=== PATIENT | female | born 1990 | race Caucasian/White ===

== ENCOUNTER → 2016-10-03 | Outpatient (CLI) | payer OTHER | LOC: HPND 15:01 | PROVIDERS: ATTEND Family Medicine | DX: Z36 Encounter for antenatal screening of mother (principal) | CPT/HCPCS: 76805 ==

== ENCOUNTER → 2016-11-21 | Outpatient (CLI) | payer OTHER ==
[~2016-11-21] MED LIST: INFL1INJ49 IM; TETA1INJ6 IM
== END ==
LOC: HPND 13:00
PROVIDERS: ATTEND Family Medicine
DX: Z36 Encounter for antenatal screening of mother (principal)
CPT/HCPCS: 76816

== ENCOUNTER 2017-03-24 10:38 | Emergency (ER) | payer OTHER ==
[~2017-03-24] VITALS: Ht 162.6 cm; Wt 75.7 kg
[~2017-03-24 10:38] MED LIST changes: +BREAST PUMP1 MI1; -INFL1INJ49 IM; -TETA1INJ6 IM
--- NOTE | 2017-03-24 10:48 | PD ---
HPI Date Seen: Mar 24, 2017 Travel History International Travel<30 Days: No Contact w/Intl Traveler<30Days: No Known Affected Area: No History of Present Illness HPI The patient is a very pleasant 26 year old at 40 weeks gestation being seen in the OB ED due to contractions. Patient states she first started having contractions late last night around 23:00 and thought they have been been intensifying beginning peter. 04:00 this AM. Pt states she has been feeling contractions about every 5-10 minutes. Denies LOF. +FM. She otherwise has no complaints. The patient was seen in clinic yesterday by her PCP Dr. Barrios and cervix noted to be thick and closed. Para: 0 : 1 History Past Medical History Medical History: Denies Significant Hx Past Surgical History Surgical History: No Previous Surgery Family History Narrative Family History Thalassemia Anemia Social History Alcohol Use: No Tobacco Use: No Substance Abuse: No Allergies-Medications (Allergen,Severity, Reaction): Coded Allergies: No Known Allergies (Unverified Adverse Reaction, Unknown, 03/24/17) Home Meds Active Scripts Breast Pump (Breast Pump) 1 Mis Mis, EA .ROUTE DIRECTED, #1 Request for pump to help with . Prov:Carmelo Barrios MD R3 03/02/17 Review of Systems Except as stated in HPI: all other systems reviewed are Neg Physical Exam Narrative GENERAL: Well-nourished, well-developed patient. SKIN: Warm and dry. HEAD: Normocephalic and atraumatic. EYES: No scleral icterus. No injection or drainage. ENT: No nasal drainage noted. Mucous membranes pink. Airway patent. NECK: Supple, trachea midline. No JVD. CARDIOVASCULAR: Regular rate and rhythm without murmurs, gallops, or rubs. RESPIRATORY: Breath sounds equal bilaterally. No accessory muscle use. ABDOMEN/GI: Abdomen soft, non-tender, bowel sounds present, no rebound, no guarding Gravid to 40 weeks size GENITOURINARY: External Genitalia: intact and normal in appearance Cervix: midposition Dilatation: 1-2 cm Effacement: 70% Station: -2 Presentation: vertex Membranes: [intact or ruptured] Uterine Contractions: irregular on tocometer FHT's: Category: I Baseline: 140s Reactive: +accels Variability: mod Decels: one variable decel noted EXTREMITIES: No cyanosis or edema. BACK: Nontender without obvious deformity. NEUROLOGICAL: Awake and alert. Motor and sensory grossly within normal limits. Normal speech. Data Data Vital Signs Reviewed: Yes Group B Strep: Negative MDM Medical Record Reviewed: Yes Plan Very pleasant 26 year old at 40 weeks gestation seen in OB ED for contractions. 1. IUP - Cervix: 1-2cm/70%/-2, vertex presentation - Patient monitored in OB triage, advised to ambulate as tolerated for an hour as her cervix was noted to be thick and closed in clinic yesterday - Repeat cervical exam is unchanged - Category I tracing - Irregular contractions on tocometer - Labor precautions reviewed with patient - Patient will follow up with PCP Dr. Barrios for next scheduled office visit if not in spontaneous active labor prior to then luciano Haji Diagnosis Diagnosis: Primary Impression: Intrauterine Additional Impression: 40 weeks gestation of Disposition: 01 DISCHARGE HOME Condition: Stable Patient Instructions: Early Labor Signs (ED), General Instructions Jose G Platt MD R2 Mar 24, 2017 10:48
[2017-03-25] MEDS ORDERED: PRENTAB7 (08:14)
== END 2017-03-24 13:04 | disposition home or self-care (01) ==
LOC: HOBED 10:38
DX: O47.03 False labor before 37 completed weeks of gestation, third trimester (principal); Z3A.40 40 weeks gestation of pregnancy
CPT/HCPCS: 59025

== ENCOUNTER 2017-03-25 07:44 | Inpatient (IN) | payer OTHER ==
[~2017-03-25] VITALS: Ht 162.6 cm; Wt 76.0 kg
[2017-03-25] VITALS (42 sets, daily range): BP systolic 88–134; BP diastolic 60–104; PULSE 68–132; RESP 16–20; TEMP 97.5–99.1; O2SAT 0
[2017-03-25] MEDS ORDERED: PRENTAB7 (08:14)
[2017-03-25] MEDS ORDERED: LIDOCAINE HCL 1% 50 ML VIAL INFIL PRN (08:30)
[2017-03-25] MEDS ORDERED: LIDOCAINE HCL 1% 50 ML VIAL I-DERMAL PRN (08:30)
[2017-03-25] MEDS ORDERED: OXYTOCIN 30 UNITS-500ML PREMIX 500 ML IV ONE (08:30)
[2017-03-25] MEDS ORDERED: MINERAL OIL 10 ML VIAL TOPICAL PRN (08:30)
[2017-03-25] MEDS ORDERED: CITRIC ACID-SODIUM CITRATE LIQ 30 ML UDC PO SCH (08:30)
[2017-03-25] MEDS ORDERED: SODIUM CHLORID 0.9% 500 ML INJ 500 ML IV PRN (08:30)
--- NOTE | 2017-03-25 08:44 | HHI.HP ---
History & Physical H&P HPI Chief Complaint Contractions Date Seen: Mar 25, 2017 Time Seen: 07:48 Travel History International Travel<30 Days: No Contact w/Intl Traveler<30Days: No History of Present Illness HPI The patient is a very pleasant 26 year old at 40 and 1/7 weeks gestation seen in the OB ED due to contractions becoming more intense. Patient states she has an peter on her phone that has been measuring the frequency of her contractions she states she had been having contractions about every 6-7 minutes for an hour or so but then had intervals of up to 30 minutes. She states she believes her contractions have been more intense since coming in yesterday. She also reports some dribbling after voiding and some fluid on paper when she has to wipe. Reports +FM. She was seen here yesterday in the OB ED and cervix noted to be 1-2cm/70%/-2. Para: 0 : 1 History Past Medical History Medical History: Denies Significant Hx Past Surgical History Surgical History: No Previous Surgery Family History Family History: Negative Social History Alcohol Use: No Tobacco Use: No Substance Abuse: No Allergies-Medications (Allergen,Severity, Reaction): Coded Allergies: No Known Allergies (Unverified Adverse Reaction, Unknown, 03/24/17) Home Meds Active Scripts Breast Pump (Breast Pump) 1 Mis Anila EA .ROUTE DIRECTED, #1 Request for pump to help with . Prov:Carmelo Barrios MD R3 03/02/17 Reported Medications Pnv No.95/Ferrous Fum/Folic AC ( Vitamins Tablet) 28 Mg Iron-800 Mcg Tablet 03/25/17 Review of Systems Except as stated in HPI: all other systems reviewed are Neg Physical Exam Narrative GENERAL: Well-nourished, well-developed patient. SKIN: Warm and dry. HEAD: Normocephalic and atraumatic. EYES: No scleral icterus. No injection or drainage. ENT: No nasal drainage noted. Mucous membranes pink. Airway patent. NECK: Supple, trachea midline. No JVD. CARDIOVASCULAR: Regular rate and rhythm without murmurs, gallops, or rubs. RESPIRATORY: Breath sounds equal bilaterally. No accessory muscle use. ABDOMEN/GI: Abdomen soft, non-tender, bowel sounds present, no rebound, no guarding Gravid to 40 weeks size GENITOURINARY: External Genitalia: intact and normal in appearance Cervix: posterior Dilatation: 4cm Effacement: 80% Station: -1 Presentation: vertex Membranes: bulging Uterine Contractions: irregular on tocometer FHT's: Category: I Baseline: 140s Reactive: yes Variability: mod Decels: one variable decel noted EXTREMITIES: No cyanosis or edema. BACK: Nontender without obvious deformity. No CVA tenderness. NEUROLOGICAL: Awake and alert. Motor and sensory grossly within normal limits. Normal speech. Data Vital Signs Reviewed: Yes Group B Strep: Negative Medical Record Reviewed: Yes Plan Very pleasant 26 year old at 40 and 1/7 weeks gestation seen in OB ED for labor check, being admitted to L&D in active labor. 1. IUP - Admit to L&D - Cervix: 4cm/80%/-1, vertex - Category I tracing - Irregular contractions on tocometer - GBS negative - May AROM for augmentation of labor - Desiring epidural - Start Pitocin per protocol - Expectant management Jose G Regalado MD R2 Mar 25, 2017 08:44
[2017-03-25] MEDS ORDERED: OXYTOCIN 30 UNITS-500ML PREMIX 500 ML IV SCH ×2 (08:45→16:30)
[2017-03-25] MEDS ORDERED: SODIUM CHLOR 0.9% 1000 ML INJ 1,000 ML IV PRN (09:00)
[2017-03-25] MEDS ORDERED: LACTATED RINGER'S 1000 ML INJ 1,000 ML IV PRN (09:00)
[2017-03-25 09:09] LABS: BASOPHIL % 0.2 % (0.0-2.0); EOSINOPHIL # 0.4 TH/MM3 (0-0.4); EOSINOPHIL % 2.4 % (0.0-4.0); HEMATOCRIT 38.9 % (35.0-46.0); HEMOGLOBIN 13.1 GM/DL (11.6-15.3); LYMPH % 11.9 % (9.0-44.0); LYMPHOCYTE # 1.8 TH/MM3 (1.0-4.8); MEAN CORPUSCULAR HGB CONC 33.7 % (32.0-36.0); MEAN PLATELET VOLUME 8.8 FL (7.0-11.0); MONO % 7.1 % (0.0-8.0); MONOCYTE # 1.1 TH/MM3 (0-0.9); NEUT % 78.4 % (16.0-70.0); PLATELET COUNT 243 TH/MM3 (150-450); RED BLOOD COUNT 4.09 MIL/MM3 (4.00-5.30); WHITE BLOOD COUNT 15.4 TH/MM3 (4.0-11.0)
[2017-03-25 09:11] LABS: BACTERIA, URINE RARE /hpf; BILIRUBIN, URINE NEG (NEG); BLOOD, URINE TRACE (NEG); GLUCOSE,URINE NEG (NEG); KETONE, URINE NEG (NEG); MUCUS URINE FEW /lpf (OCC); NITRITE,URINE NEG (NEG); PH, URINE 6.5 (5.0-8.5); SQUAMOUS EPITHELIAL CELL URINE 3 /hpf (0-5); URINE COLOR LIGHT-YELLOW (YELLW/STRAW); URINE LEUKOCYTE ESTERASE SMALL (NEG)
[2017-03-25] MEDS: LACTATED RINGER'S 1000 ML INJ 1,000 ML IV SCH ×2 (09:11→11:52)
[2017-03-25] MEDS ORDERED: fentaNYL 2MCG-BUPIV 0.125% INJ 100 ML ONE (10:33)
[2017-03-25] MEDS ORDERED: ePHEDrine/NS 25 MG/5 ML SYRINGE ONE (10:49)
--- NOTE | 2017-03-25 11:28 | PD.LABORPN ---
Subjective Subjective Resting in bed, just received epidural. Had some mild nausea earlier. No chest pain or shortness of breath. Feeling contractions. Calm and relaxed in the room. (Carmelo Barrios MD R3) Objective Vital Signs Vital Signs Date Time Temp Pulse Resp B/P (MAP) Pulse Ox O2 Delivery O2 Flow Rate FiO2 03/25/17 10:50 70 110/66 (81) 03/25/17 10:14 84 115/77 (90) 03/25/17 09:45 73 101/72 (82) 03/25/17 09:17 79 104/66 (79) 03/25/17 09:15 79 104/66 (79) 03/25/17 09:15 18 03/25/17 08:15 18 Objective Pelvic Exam: Dilatation: 5 cm Effacement: 80% Station: -1 Presentation: vertex Membranes: intact, amniotomy attempted but slow leak only Uterine Contractions: q2-3 mins currently, was irregular FHT's: Category: 1 Baseline: 140's Reactive: yes Variability: moderate Decels: none (Carmelo Barrios MD R3) Assessment/Plan Assessment and Plan 26 year old G1 at 5 cm dilation, 80% effaced, -[address] On oxytocin 04/20/29 protocol. Contractions every 2 to 3 minutes currently. Amniotomy attempted but slow leak only. - Continue maternal- monitoring continuously. - Anticipate vaginal delivery, expectant management. Discussed with Dr. Forbes (Carmelo Barrios MD R3) Assessment and Plan Patient seen and evaluated with resident under direct supervision, agree with assessment and plan. (Fred Forbes MD) Carmelo Barrios MD R3 Mar 25, 2017 11:28 Fred Forbes MD Mar 26, 2017 08:20
[2017-03-25] MEDS ORDERED: ePHEDrine/NS 25 MG/5 ML SYRINGE IV PUSH PRN (11:45)
[2017-03-25] MEDS ORDERED: fentaNYL 2MCG-BUPIV 0.125% 100 ML EPIDURAL SCH (11:45)
[2017-03-25] MEDS ORDERED: NO SYSTEM NARCOTICS PRN (11:45)
[2017-03-25] MEDS ORDERED: DO NOT ADMINISTER ANTICOAGULANTS PRN (11:45)
[2017-03-25] MEDS ORDERED: MEASLES, MUMPS, RUBELLA VACCINE 0.5 ML VIAL SQ ONE (16:00)
[2017-03-25] MEDS ORDERED: DIPHTH/TETANUS/ACEL PERTUSSIS (BOOSTER) 0.5 ML VIAL/PFS IM ONE (16:00)
[2017-03-25] MEDS ORDERED: WITCH HAZEL 50%/GLYCERIN 12.5% 40 PAD JAR TOPICAL PRN (16:30)
[2017-03-25] MEDS ORDERED: ZOLPIDEM TARTRATE 5 MG TAB PO PRN (16:30)
[2017-03-25] MEDS ORDERED: ONDANSETRON ODT 4 MG TAB PO PRN (16:30)
[2017-03-25] MEDS ORDERED: DOCUSATE SODIUM 50 MG/SENNA 8.6 MG TAB PO PRN (16:30)
[2017-03-25] MEDS ORDERED: ALUMINUM/MAGNESIUM/SIMETH 30 ML CUP PO PRN (16:30)
[2017-03-25] MEDS ORDERED: oxyCODONE/ACETAMINOPHEN 5 MG/325 MG TAB PO PRN ×2 (16:30)
[2017-03-25] MEDS ORDERED: SODIUM CHLORIDE 0.9% FLUSH 10 ML FLUSH IV FLUSH PRN (16:30)
[2017-03-25] MEDS ORDERED: ACETAMINOPHEN 325 MG TAB PO PRN (16:30)
[2017-03-25] MEDS ORDERED: BENZOCAINE 20% TOPICAL SPRAY 60 ML CAN TOPICAL PRN (16:30)
--- NOTE | 2017-03-25 16:49 | PD.OB.DELI ---
Weeks gestation: 40 Pt started active labor?: Yes Active labor start date: Mar 25, 2017 Active labor start time: 11:30 Medical induction of labor?: No Artificial rupture of membrane: Yes Artificial ROM date: Mar 25, 2017 Artifical ROM time: 11:30 Anesthesia: Epidural Episiotomy: None Vaginal Delivery: Normal, Spontaneous Presentation: Occiput posterior Nuchal Cord: None Delayed cord clamping (45 sec): Yes : Female Delivery date: Mar 25, 2017 Delivery time: 15:56 One Minute : 9 Five Minute : 9 Weight: 3105 Placenta: Spontaneous delivery Laceration: Perineal laceration, 3 deg Repair: Vicryl interrupted (rectal capsule repaired with 0 Vicryl interrupted sutures ), Vicryl running (3-0 Vicryl running sutures used to repair perineal laceration) Estimated blood loss: 350cc Additional Information Resident: Dr. Barrios Attending: Dr. Forbes Normal spontaneous vaginal delivery of live female , occiput posterior, over intact perineum with epidural anesthesia. No nuchal cord present. Spontaneous delivery of placenta with 3-vessel cord. 3rd degree laceration extended to the rectal capsule. Rectal capsule restored using an interrupted technique with 0 Vicryl, while remainder of perineal laceration repaired with running 3-0 Vicryl. Estimated blood loss 350 cc's. Oxytocin utilized for labor augmentation on a 2--30 protocol. (Carmelo Barrios MD R3) Attestation I was in attendance for this delivery. The repair of the rectal capsule was performed by me using interrupted 0 Vicryl sutures. There was no evidence of penetrating trauma to the rectal mucosa and no suture material in the rectum after the repair. (Fred Forbes MD) Carmelo Barrios MD R3 Mar 25, 2017 16:49 Fred Forbes MD Mar 26, 2017 09:11
[2017-03-25] MEDS ORDERED: SODIUM CHLORIDE 0.9% FLUSH 10 ML FLUSH IV FLUSH SCH (21:00)
[2017-03-25] MEDS: IBUPROFEN 800 MG TAB PO PRN (23:23)
--- NOTE | 2017-03-26 07:59 | HHI.OB ---
Subjective Remarks 26 year old PPD 1 after spontaneous vaginal delivery. No acute events overnight. She required only Ibuprofen for pain control overnight. She reports minimal pain this morning. Lochia is the amount of a menstrual period. She has no nausea or vomiting. No chest pain or shortness of breath. No calf tenderness or swelling. She is without difficulties. (Carmelo Barrios MD R3) Remarks Patient seen and evaluated with resident under direct supervision, agree with assessment and plan. (Fred Forbes MD) Objective Vitals/I&O Vital Signs Date Time Temp Pulse Resp B/P (MAP) Pulse Ox O2 Delivery O2 Flow Rate FiO2 03/25/17 20:05 99.1 90 18 122/72 (89) 03/25/17 18:18 98.9 93 20 110/65 (80) 0 03/25/17 17:30 107 116/72 (87) 03/25/17 17:15 108 111/68 (82) 03/25/17 17:00 107 119/69 (86) 03/25/17 16:45 116 110/65 (80) 03/25/17 16:30 108 123/71 (88) 03/25/17 16:15 119 120/70 (87) 03/25/17 16:01 132 113/104 (107) 03/25/17 16:00 18 03/25/17 15:59 129 121/69 (86) 03/25/17 15:01 88 134/90 (105) 03/25/17 14:58 98.1 18 03/25/17 14:31 92 88/71 (77) 03/25/17 14:01 90 108/69 (82) 03/25/17 13:45 98.0 18 03/25/17 13:30 87 103/78 (86) 03/25/17 13:00 88 104/60 (75) 03/25/17 12:30 106 92/73 (79) 03/25/17 12:14 16 03/25/17 12:00 69 120/71 (87) 03/25/17 11:53 18 03/25/17 11:50 125/76 (92) 03/25/17 11:50 68 03/25/17 11:45 75 116/64 (81) 03/25/17 11:45 97.5 72 18 03/25/17 11:42 124 117/77 (90) 03/25/17 11:35 79 03/25/17 11:35 75 120/71 (87) 03/25/17 11:30 78 121/74 (90) 03/25/17 11:30 77 03/25/17 11:27 75 117/69 (85) 03/25/17 11:25 74 03/25/17 11:24 76 117/74 (88) 03/25/17 11:21 73 115/67 (83) 03/25/17 11:20 76 03/25/17 11:19 93 128/75 (92) 03/25/17 11:15 88 03/25/17 11:15 87 128/76 (93) 03/25/17 11:14 86 114/72 (86) 03/25/17 11:10 88 03/25/17 11:05 89 03/25/17 10:50 70 110/66 (81) 03/25/17 10:14 84 115/77 (90) 03/25/17 09:45 73 101/72 (82) 03/25/17 09:17 79 104/66 (79) 03/25/17 09:15 79 104/66 (79) 03/25/17 09:15 18 03/25/17 08:15 18 Objective Remarks GENERAL: Well-nourished, well-developed patient. CARDIOVASCULAR: Regular rate and rhythm without murmurs, gallops, or rubs. RESPIRATORY: Breath sounds equal bilaterally. No accessory muscle use. ABDOMEN/GI: Abdomen soft, non-tender. Fundus: Firm, non-tender at umbilicus. GENITOURINARY: Moderate bleeding. EXTREMITIES: No cyanosis or edema, non-tender, without signs of DVT. Medications and IVs Current Medications Medications (Trade) Dose Ordered Sig/Angeles Route Start Time Stop Time Status Last Admin Miscellaneous Information No systemic narcotics to be given except... UNSCH PRN .XX 03/25/17 11:45 03/26/17 11:44 Miscellaneous Information DO NOT ADMINISTER ANY ANTICOAGUL... UNSCH PRN .XX 03/25/17 11:45 03/26/17 11:44 (NS Flush) 2 ml BID IV FLUSH 03/25/17 21:00 (NS Flush) 2 ml UNSCH PRN IV FLUSH 03/25/17 16:30 (Tylenol) 650 mg Q4H PRN PO 03/25/17 16:30 (Motrin) 800 mg Q8H PRN PO 03/25/17 16:30 03/25/17 23:23 (Percocet 5-325 Mg) 1 tab Q4H PRN PO 03/25/17 16:30 (Percocet 5-325 Mg) 2 tab Q4H PRN PO 03/25/17 16:30 (Americaine 20% Top Spr) 1 spray Q4H PRN TOPICAL 03/25/17 16:30 03/25/17 23:24 (Tucks Pads) 1 applic QID PRN TOPICAL 03/25/17 16:30 03/25/17 23:24 (Jovanna-Colace) 2 tab Q12H PRN PO 03/25/17 16:30 (Ambien) 5 mg HS PRN PO 03/25/17 16:30 (Mag-Al Plus Susp Liq) 15 ml Q8H PRN PO 03/25/17 16:30 (Zofran Odt) 4 mg Q6H PRN PO 03/25/17 16:30 (Miralax) 17 gm DAILY PO 03/26/17 09:00 (Carmelo Barrios MD R3) Assessment/Plan Assessment and Plan 26 year old PPD1 after spontaneous vaginal delivery, doing well post- . - Continue , sec reporting consultant will see her today for support and education. - Discussed control, she is undecided at this time. - 3rd degree laceration during delivery: discussed need for regular soft bowel movements and avoidance of constipation, giving her Miralax daily. Can increase constipation medications as needed. She is not currently requiring any opioids. - Pain management: well controlled with just Ibuprofen. - Encourage ambulation - Monitor lochia, report bleeding that is more than a menstrual period. - Recommend pelvic rest for 6 weeks. - Possible discharge tomorrow if continuing to do well. Will follow up with me in the clinic with 4 weeks for post- care. Will discuss with Dr. Forbes (Carmelo Barrios MD R3) Carmelo Barrios MD R3 Mar 26, 2017 07:59 Fred Forbes MD Mar 26, 2017 09:08
[2017-03-26 08:35] VITALS: BP 98/51; PULSE 87; RESP 18; TEMP 98.1
[2017-03-26] MEDS: IBUPROFEN 800 MG TAB PO PRN ×2 (08:40→17:46)
[2017-03-26] MEDS: DOCUSATE SODIUM 50 MG/SENNA 8.6 MG TAB PO SCH ×2 (08:52→22:13)
[2017-03-26] MEDS ORDERED: POLYETHYLENE GLYCOL 17 GM PKG PO SCH (09:00)
[2017-03-26 20:15] VITALS: BP 101/61; PULSE 86; RESP 16; TEMP 98.2
[2017-03-27] MEDS: IBUPROFEN 800 MG TAB PO PRN (02:49)
[2017-03-27] MEDS ORDERED: IBUP1TAB7 PO (07:56)
[2017-03-27] MEDS ORDERED: PERI PO (07:56)
--- NOTE | 2017-03-27 07:58 | HHI.DCPOC ---
Discharge Care Plan Diagnosis: (1) care following vaginal delivery (2) Third degree laceration of perineum during delivery, Goals to Promote Your Health * To prevent worsening of your condition and complications * To maintain your health at the optimal level Directions to Meet Your Goals Take your medications as prescribed Follow your dietary instruction Follow activity as directed Keep your appointments as scheduled Take your immunizations and boosters as scheduled If your symptoms worsen call your PCP, if no PCP go to Urgent Care Center or Emergency Room Smoking is Dangerous to Your Health. Avoid second hand smoke Call the 24-hour hour crisis hotline for domestic abuse at Carmelo Barrios MD R3 Mar 27, 2017 07:58
[2017-03-27 08:00] VITALS: BP 94/64; PULSE 70; RESP 14; TEMP 98.6
--- NOTE | 2017-03-27 08:13 | HHI.OB ---
Subjective Remarks 26 year old PPD 2 after spontaneous vaginal delivery. No acute events overnight, required just one Percocet overnight, otherwise pain well controlled with Ibuprofen alone. She reports minimal pain this morning. Lochia is the amount of a menstrual period. She has no nausea or vomiting. No chest pain or shortness of breath. No calf tenderness or swelling. She is without difficulties. She is ambulating around the room without difficulty. Objective Vitals/I&O Vital Signs Date Time Temp Pulse Resp B/P (MAP) Pulse Ox O2 Delivery O2 Flow Rate FiO2 03/26/17 20:15 98.2 86 16 101/61 (74) 03/26/17 08:35 98.1 87 18 98/51 (67) Objective Remarks GENERAL: Well-nourished, well-developed patient. CARDIOVASCULAR: Regular rate and rhythm without murmurs, gallops, or rubs. RESPIRATORY: Breath sounds equal bilaterally. No accessory muscle use. ABDOMEN/GI: Abdomen soft, non-tender. Fundus: Firm, non-tender at umbilicus. GENITOURINARY: Moderate bleeding. EXTREMITIES: No cyanosis or edema, non-tender, without signs of DVT. Medications and IVs Current Medications Medications (Trade) Dose Ordered Sig/Angeles Route Start Time Stop Time Status Last Admin (NS Flush) 2 ml BID IV FLUSH 03/25/17 21:00 (NS Flush) 2 ml UNSCH PRN IV FLUSH 03/25/17 16:30 (Tylenol) 650 mg Q4H PRN PO 03/25/17 16:30 03/26/17 08:40 (Motrin) 800 mg Q8H PRN PO 03/25/17 16:30 03/27/17 02:49 (Percocet 5-325 Mg) 1 tab Q4H PRN PO 03/25/17 16:30 03/27/17 02:49 (Percocet 5-325 Mg) 2 tab Q4H PRN PO 03/25/17 16:30 (Americaine 20% Top Spr) 1 spray Q4H PRN TOPICAL 03/25/17 16:30 03/25/17 23:24 (Tucks Pads) 1 applic QID PRN TOPICAL 03/25/17 16:30 03/25/17 23:24 (Jovanna-Colace) 2 tab Q12H PRN PO 03/25/17 16:30 (Ambien) 5 mg HS PRN PO 03/25/17 16:30 (Mag-Al Plus Susp Liq) 15 ml Q8H PRN PO 03/25/17 16:30 (Zofran Odt) 4 mg Q6H PRN PO 03/25/17 16:30 (Miralax) 17 gm DAILY PO 03/26/17 09:00 03/26/17 08:51 (Jovanna-Colace) 2 tab BID PO 03/26/17 09:00 03/26/17 22:13 Assessment/Plan Assessment and Plan 26 year old PPD1 after spontaneous vaginal delivery, doing well post- . - Continue , [employer] portal consultant on board for support and education. - Discussed control, she is undecided at this time. Will discuss in office. - 3rd degree laceration during delivery: discussed need for regular soft bowel movements and avoidance of constipation. Will give her Jovanna-Colace to go home with. Increase fiber and water in diet. - Pain management: well controlled with mostly just Ibuprofen. - Encourage ambulation - Monitor lochia, report bleeding that is more than a menstrual period. - Recommend pelvic rest for 6 weeks. - Likely discharge today. Will follow up with me in the clinic within 4 weeks for post- care. Will discuss with Carmelo Jones MD R3 Mar 27, 2017 08:13
== END 2017-03-27 13:05 | disposition home or self-care (01) | DRG 775 ==
LOC: HOBED 07:44 → H2EB 08:29 → H1EA 17:58
PROVIDERS: ADMIT Obstetrics & Gynecology; ATTEND Obstetrics & Gynecology
PROC: 0DQR0ZZ Repair Anal Sphincter, Open Approach (ICD-10-PCS; principal; 2017-03-25)
PROC: 10E0XZZ Delivery of Products of Conception, External Approach (ICD-10-PCS; 2017-03-25)
PROC: 10907ZC Drainage of Amniotic Fluid, Therapeutic from Products of Conception, Via Natural or Artificial Opening (ICD-10-PCS; 2017-03-25)
DX: O70.20 Third degree perineal laceration during delivery, unspecified (principal); Z37.0 Single live birth; Z3A.40 40 weeks gestation of pregnancy
CPT/HCPCS: 59025; 80307; 81001; 85025; 86900; 86901; G0481; J2590; J7120